=== PATIENT | male | born 1975 | race American Indian/Alaskan Native ===

== ENCOUNTER 2017-04-29 03:30 | Emergency (ER) | payer SELFPAY ==
--- NOTE | 2017-04-29 04:57 | Cat Scan Report ---
FINAL REPORT EXAM: CT HEAD/BRAIN WO CON HISTORY: headache, syncope on charbel TECHNIQUE: Routine axial imaging was obtained the brain without IV contrast. FINDINGS: There are no attenuation abnormalities. The ventricular system is appropriate in size and is symmetric. The visualized sinuses are clear. The mastoid air cells are well pneumatized. IMPRESSION: Normal exam.
[2017-04-29] MEDS ORDERED: BENADRYL IM ONE (08:44)
[2017-04-29] MEDS ORDERED: TORADOL IM ONE (08:44)
[2017-04-29] MEDS ORDERED: REGLAN IM ONE (08:44)
[2017-04-29] MEDS ORDERED: DECADRON IM ONE (08:44)
--- NOTE | 2017-04-29 08:46 | Emergency Department Report ---
ED Headache HPI - General Chief Complaint: Headache Stated Complaint: HEADACHE Time Seen by Provider: 04/29/17 08:39 Source: patient Exam Limitations: no limitations - History of Present Illness Initial Comments: Patient here reports that the right side of his head has been hurting for 3 weeks. He also said E7 right eye and facial pain. He reports that he is having positive light sensitivity. Reports nausea without any finding of vomiting. He said he almost passed out Wednesday while he was in custody. Triage notes reflect that patient said he passed out but when I asked him he said he nearly passed out and it's from lack of sleep He said he was never referred to neurologist and they only gave him Motrin 800 for pain. Patient has a history of migraine headache and he's had surgery on his back October 2013 with hardware. He said he has chronic pain. Denies any dizziness. Denies any fever or chills. Denies any chest pain or shortness of breath. Pain is 10 out of 10 and achy. Timing/Duration: episodic, waxing and waning, other (3 weeks) Quality: severe, achy, throbbing Head Injury Location: frontal, occipital, parietal Recent Head Trauma: no recent headache/trauma, occasional headaches Modifying Factors: improves with: exposure to light, immobilization, movement, rest Associated Symptoms: facial pain, nausea/vomiting. denies: confusion, fatigue, fever/chills, flushing, loss of consciousness, nasal congestion, nasal drainage , numbness in legs/feet, rash, seizures, sinus infection, stiff neck, vision changes (sensitivity to light), weakness Allergies/Adverse Reactions: Allergies onion Allergy (Verified 04/29/17 03:46) Anaphylaxis Home Medications: Ambulatory Orders Codeine/Butalbital/ASA/Caffein [Fiorinal with Codeine #3 Cap] 1 each PO Q8H PRN #15 capsule 04/29/17 Ibuprofen [Motrin] 600 mg PO Q8H PRN #15 tablet 04/29/17 Promethazine [Phenergan TAB] 25 mg PO Q8HR PRN #12 tab 04/29/17 ED Review of Systems ROS: Stated complaint: HEADACHE Other details as noted in HPI Comment: All other systems reviewed and negative Constitutional: no symptoms reported Eyes: other (sensitivity to light) ENT: denies: ear pain, throat pain, dental pain, hearing loss, epistaxis, congestion Respiratory: no symptoms reported Cardiovascular: denies: chest pain, palpitations, edema, syncope Gastrointestinal: nausea. denies: abdominal pain, vomiting, diarrhea, constipation, hematemesis, melena, hematochezia Musculoskeletal: denies: back pain, joint swelling, arthralgia, myalgia Skin: denies: rash Neurological: headache. denies: weakness, numbness, paresthesias, confusion, abnormal gait, vertigo ED Past Medical Hx - Past Medical History Previous Medical History?: Yes Hx Headaches / Migraines: Yes Additional medical history: Chronic pain - Surgical History Past Surgical History?: Yes Additional Surgical History: back sx october 2013, hardware in back - Family History Family history: no significant - Social History Smoking Status: Never Smoker Substance Use Type: None - Medications Home Medications: Home Medications Medication Instructions Recorded Confirmed Last Taken Type Codeine/Butalbital/ASA/Caffein 1 each PO Q8H PRN #15 capsule 04/29/17 Unknown Rx [Fiorinal with Codeine #3 Cap] Ibuprofen [Motrin] 600 mg PO Q8H PRN #15 tablet 04/29/17 Unknown Rx Promethazine [Phenergan TAB] 25 mg PO Q8HR PRN #12 tab 04/29/17 Unknown Rx ED Physical Exam - General Limitations: No Limitations General appearance: alert, in no apparent distress - Head Head exam: Present: atraumatic, normocephalic, normal inspection - Expanded Head Exam Expanded Head exam: Absent: laceration, abrasion, contusion, hematoma, racoon eyes, oconnor's sign, general tenderness, tenderness of temporal artery, CSF rhinorrhea , CSF otorrhea - Eye Eye exam: Present: PERRL, EOMI, other (swelling to the lower lid). Absent: normal appearance, scleral icterus, conjunctival injection, nystagmus, periorbital swelling, periorbital tenderness Pupils: Present: normal accommodation. Absent: miosis - Expanded Eye Exam Expanded Eyelids: Swelling: Right (positive clear drainage from right eye.) Pupils: Regular, Round: Bilateral, Reactive: Bilateral Sclera/Conjunctival: Normal Inspection: Bilateral Anterior chamber: Normal Inspection: Bilateral Posterior chamber: Normal Inspection: Bilateral, Papilledema: Bilateral, Hemorrhage: Bilateral, Retinal Detachment: Bilateral Visual acuity (R) = 20/: 30 (20/20 both eyes) Visual acuity (L) = 20/: 25 With correction: No - ENT ENT exam: Present: normal exam, normal orophraynx, mucous membranes moist, TM's normal bilaterally, normal external ear exam, other (no maxillary or frontal sinus tenderness) - Neck Neck exam: Present: normal inspection, full ROM, other (no C-spine tenderness). Absent: tenderness, meningismus, lymphadenopathy - Respiratory Respiratory exam: Present: normal lung sounds bilaterally. Absent: respiratory distress, wheezes, chest wall tenderness, accessory muscle use - Cardiovascular Cardiovascular Exam: Present: regular rate, normal rhythm, normal heart sounds. Absent: systolic murmur, diastolic murmur - GI/Abdominal GI/Abdominal exam: Present: soft, normal bowel sounds. Absent: distended, tenderness, guarding, rebound, rigid - Extremities Exam Extremities exam: Present: normal inspection, full ROM, normal capillary refill. Absent: tenderness, pedal edema, joint swelling, calf tenderness - Back Exam Back exam: Present: normal inspection, full ROM. Absent: tenderness, CVA tenderness (R), CVA tenderness (L), muscle spasm, paraspinal tenderness, vertebral tenderness, rash noted - Expanded Back Exam Expanded Back exam: Absent: saddle anesthesia Back exam: Negative Straight Leg Raising: Left, Right - Neurological Exam Neurological exam: Present: alert, oriented X3, normal gait, reflexes normal. Absent: motor sensory deficit - Expanded Neurological Exam Expanded Neurological exam: Absent: innattentive, memory loss-remote event, memory loss- recent event, ataxia, receptive aphasia, expressive aphasia, total aphasia, tremor, protecting the airway Patient oriented to: Present: person, place, time Speech: Present: fluid speech Cranial nerves: EOM's Intact: Normal, Gag Reflex: Normal, Tongue Deviation: Normal, Nystagmus: Normal, Facial Sensation: Normal Cerebellar function: Romberg: Normal Upper motor neuron: Pronator Drift: Normal, Sensory Extinction: Normal Sensory exam: Upper Extremity Light Touch: Normal, Upper Extremity Temperature: Normal, UE 2 Point Discrimination: Normal, Lower Extremity Light Touch: Normal, Lower Extremity Temperature: Normal, LE 2 Point Discrimination: Normal Motor strength exam: RUE: 5, LUE: 5, RLE: 5, LLE: 5 DTR: bicep (R): 3+, bicep (L): 3+, tricep (R): 3+, tricep (L): 3+, knee (R): 3+ , knee (L): 3+, ankle (R): 3+, ankle (L): 3+ Best Eye Response ([place]): (4) open spontaneously Best Motor Response ([place]): (6) obeys commands Best Verbal Response ([place]): (5) oriented [place] Total: 15 - Psychiatric Psychiatric exam: Present: normal affect, normal mood - Skin Skin exam: Present: warm, dry, intact, normal color. Absent: rash ED Course Vital Signs 04/29/17 03:36 Temperature 98.2 F Pulse Rate 76 Respiratory 18 Rate Blood Pressure 139/87 O2 Sat by Pulse 100 Oximetry - Reevaluation(s) Reevaluation #1: 04/29/17 09:42 Patient given Decadron 10 mg, Benadryl 50 mg, Toradol 60 mg and Reglan 10 mg IM and emergency room relief of pain. ED Medical Decision Making - Radiology Data Radiology results: report reviewed CT scan of brain without contrast shows patient with normal exam. - Medical Decision Making ED course: In here complaining of flareup of chronic headache and said that he was in longterm and was treated with Motrin. He's never been seen by a neurologist but he said he has migraine headache but was not diagnosed by neurologist. Patient with classic signs of cluster headache with headache located on right side of his head to involve right frontal, parietal and occipital area. He does have Droopy right eye with tearing and lower lid swelling without any erythema or induration. He has right facial pain which is nontender to palpate. Patient is neurologically stable and is visual acuity is stable. CT scan revealed no acute abnormalities. Patient was given Benadryl 50 mg, Decadron 10 mg, Toradol 60 mg and Reglan 10 mg emergency room which relieved his headache. I explained to patient that he will need to follow up with neurologist for evaluation and possible MRI. I also explained to him that I'll put him on Motrin and Fioricet to manage chronic headache. He voiced understanding of discharge instruction and treatment plan and discharged home in stable condition with prescription for Fioricet, Phenergan and Motrin. Critical care attestation.: If time is entered above; I have spent that time in minutes in the direct care of this critically ill patient, excluding procedure time. ED Disposition Clinical Impression: Right sided facial pain, Nausea Cluster headache, not intractable Qualifiers: Headache chronicity pattern: episodic headache Qualified Code(s): G44.019 - Episodic cluster headache, not intractable Disposition: DC-01 TO HOME OR SELFCARE Is pt being admited?: No Does the pt Need Aspirin: No Condition: Stable Instructions: Cluster Headache (ED), Acute Nausea and Vomiting (ED) Additional Instructions: follow-up with neurologist as instructed Do not take Phenergan or Fioricet while driving or operating heavy machinery as this medication causes drowsiness Inrease your fluid intake Prescriptions: Codeine/Butalbital/ASA/Caffein [Fiorinal with Codeine #3 Cap] 1 each PO Q8H PRN #15 capsule PRN Reason: Headache Ibuprofen [Motrin] 600 mg PO Q8H PRN #15 tablet PRN Reason: Pain Promethazine [Phenergan TAB] 25 mg PO Q8HR PRN #12 tab PRN Reason: Nausea Referrals: SILVIA CASTREJON MD [Staff Physician] - 3-5 Days [facility] [Outside] - 05/03/17 Forms: Work/School Release Form(ED)
[2017-04-29 10:08] VITALS: BP 134/88
== END 2017-04-29 10:07 | disposition home or self-care (01) ==
LOC: ED 03:30
DX: G43.909 Migraine, unspecified, not intractable, without status migrainosus (principal); Z91.018 Allergy to other foods
CPT/HCPCS: 70450; 96372; 99283; J1100; J1200; J1885; J2765

== ENCOUNTER 2022-03-06 17:04 | Emergency (ER) | payer SELFPAY ==
[2022-03-06 19:30] VITALS: BP 110/70
--- NOTE | 2022-03-06 20:32 | XRay Report ---
LEFT FOREARM 2 VIEWS INDICATION / CLINICAL INFORMATION: pain. COMPARISON: None available. FINDINGS: BONES / JOINT(S): No acute fracture or subluxation. No significant arthritis. SOFT TISSUES: No significant abnormality. ADDITIONAL FINDINGS: None. Signer Name: Santos Hooper MD Signed: 03/06/2022 8:27 PM Workstation Name: [id number]
--- NOTE | 2022-03-06 20:33 | XRay Report ---
LEFT WRIST 4 VIEWS INDICATION / CLINICAL INFORMATION: pain. COMPARISON: None available. FINDINGS: BONES / JOINT(S): No acute fracture or subluxation. Chronic avulsion ulnar styloid process No signifi cant arthritis. SOFT TISSUES: No significant abnormality. ADDITIONAL FINDINGS: None. Signer Name: Santos Hooper MD Signed: 03/06/2022 8:28 PM Workstation Name: [id number]
== END 2022-03-08 09:48 | disposition left against medical advice (07) ==
LOC: ED 17:04
DX: M25.532 Pain in left wrist (principal); Z53.21 Procedure and treatment not carried out due to patient leaving prior to being seen by health care provider